=== PATIENT | male | born 1985 | race Caucasian/White ===

== ENCOUNTER → 2023-11-27 08:31 | Outpatient (REF) | payer OTHER, SELFPAY | LOC: RAD 08:31 | PROVIDERS: ATTENDING PHYSICIAN Physician Assistant | DX: M25.571 Pain in right ankle and joints of right foot (principal); G89.29 Other chronic pain; Z87.81 Personal history of (healed) traumatic fracture | CPT/HCPCS: 73610 ==

== ENCOUNTER → 2025-01-26 13:46 | Outpatient (REF) | payer BC, SELFPAY | LOC: RAD 13:46 | PROVIDERS: ATTENDING PHYSICIAN Nurse Practitioner Family; FAMILY PHYSICIAN Physician Assistant | DX: M25.571 Pain in right ankle and joints of right foot (principal) | CPT/HCPCS: 73610 ==